=== PATIENT | male | born 1985 | race Caucasian/White ===

== ENCOUNTER 2017-09-14 05:16 | Inpatient (IN) | payer OTHER ==
[2017-09-14] MEDS ORDERED: ACETAMINOPHEN 325 MG TAB PO (06:00)
[2017-09-14] MEDS ORDERED: NACL 0.9% 3 ML SYG IV (06:00)
[2017-09-14] MEDS: PIPER-TAZO 3.375 GM IV (PMX) 100 ML IVPB ×3 (07:44→17:45)
[2017-09-14] MEDS: SOD CHLORIDE 0.9% 1,000 ML IV ×2 (07:44→16:37)
[2017-09-14] MEDS: morphine 2 MG INJ IV ×4 (07:45→20:46)
[2017-09-14] MEDS: ONDANSETRON 4 MG INJ IV ×2 (07:58→18:38)
[2017-09-14] MEDS: DOCUSATE SODIUM 250 MG CAP PO (11:11)
[2017-09-14 12:13] LABS: ADD MAN DIFF? NO
[2017-09-14 12:21] LABS: BASOPHILS % 0.5 % (0.0-2.0); EOSINOPHILS # 0.1 10^3/ul (0.0-0.5); EOSINOPHILS % 2.7 % (0.0-7.0); HEMOGLOBIN 13.7 g/dl (14.0-18.0); LYMPHOCYTES % 25.7 % (15.0-51.0); MEAN CORPUSCULAR HEMOGLOBIN 27.3 pg (29.0-33.0); MEAN CORPUSCULAR HGB CONC 33.4 g/dl (32.0-37.0); MEAN CORPUSCULAR VOLUME 81.8 fl (82.0-101.0); MEAN PLATELET VOLUME 9.6 fl (7.4-10.4); MONOCYTE # 0.3 10^3/ul (0.3-0.9); MONOCYTES % 7.9 % (0.0-11.0); NEUTROPHIL # 2.3 10^3/ul (1.6-7.5); NEUTROPHILS % 62.9 % (39.0-77.0); PLATELET COUNT 209 10^3/UL (140-415); RED BLOOD COUNT 5.01 10^6/ul (4.70-6.10); RED CELL DISTRIBUTION WIDTH 15.3 % (11.5-14.5)
[2017-09-14 12:21] LABS: WHITE BLOOD COUNT 3.7 10^3/ul (4.8-10.8)
[2017-09-14 12:40] LABS: ALANINE AMINOTRANSFERASE 312 IU/L (13-69); ALBUMIN 4.1 g/dl (3.3-4.9); ALBUMIN/GLOBULIN RATIO 1.57; ALKALINE PHOSPHATASE 80 IU/L (42-121); ANION GAP 13 (8-16); ASPARTATE AMINO TRANSFERASE 184 IU/L (15-46); BILIRUBIN,INDIRECT 0.7 mg/dl (0-1.1); BILIRUBIN,TOTAL 0.7 mg/dl (0.2-1.3); BLOOD UREA NITROGEN 12 mg/dl (7-20); CARBON DIOXIDE 28 mmol/L (21-31); CHLORIDE 103 mmol/L (97-110); CHOL/HDL RATIO 2.6 RATIO; CHOLESTEROL 110 mg/dl (100-200); CREATININE 0.82 mg/dl (0.61-1.24); GLUCOSE 83 mg/dl (70-220); HDL CHOLESTEROL 42 mg/dl (28-63); LDL CHOLESTEROL,CALCULATED 56 mg/dl; MAGNESIUM 1.8 mg/dl (1.7-2.5); POTASSIUM 4.3 mmol/L (3.5-5.1); SODIUM 140 mmol/L (135-144); TOTAL PROTEIN 6.7 g/dl (6.1-8.1); TRIGLYCERIDES 59 mg/dl (0-149)
[2017-09-14 12:57] LABS: HEMOGLOBIN A1C 5.9 % (0-5.9)
[2017-09-15] MEDS: PIPER-TAZO 3.375 GM IV (PMX) 100 ML IVPB ×3 (00:17→11:06)
[2017-09-15] MEDS: SOD CHLORIDE 0.9% 1,000 ML IV ×2 (03:51→11:06)
[2017-09-15 04:46] LABS: ADD MAN DIFF? NO
[2017-09-15 04:52] LABS: WHITE BLOOD COUNT 2.5 10^3/ul (4.8-10.8)
[2017-09-15 04:52] LABS: BASOPHILS % 0.8 % (0.0-2.0); EOSINOPHILS # 0.1 10^3/ul (0.0-0.5); EOSINOPHILS % 4.8 % (0.0-7.0); HEMATOCRIT 38.8 % (42.0-52.0); HEMOGLOBIN 13.4 g/dl (14.0-18.0); LYMPHOCYTES # 1.1 10^3/ul (0.8-2.9); LYMPHOCYTES % 42.6 % (15.0-51.0); MEAN CORPUSCULAR HEMOGLOBIN 28.2 pg (29.0-33.0); MEAN CORPUSCULAR HGB CONC 34.5 g/dl (32.0-37.0); MEAN CORPUSCULAR VOLUME 81.7 fl (82.0-101.0); MEAN PLATELET VOLUME 9.6 fl (7.4-10.4); MONOCYTE # 0.3 10^3/ul (0.3-0.9); MONOCYTES % 11.2 % (0.0-11.0); NEUTROPHILS % 40.6 % (39.0-77.0); PLATELET COUNT 198 10^3/UL (140-415); RED BLOOD COUNT 4.75 10^6/ul (4.70-6.10); RED CELL DISTRIBUTION WIDTH 15.1 % (11.5-14.5)
[2017-09-15 05:23] LABS: ALANINE AMINOTRANSFERASE 221 IU/L (13-69); ALBUMIN 3.5 g/dl (3.3-4.9); ALKALINE PHOSPHATASE 67 IU/L (42-121); ANION GAP 15 (8-16); ASPARTATE AMINO TRANSFERASE 88 IU/L (15-46); BILIRUBIN,INDIRECT 0.3 mg/dl (0-1.1); BILIRUBIN,TOTAL 0.3 mg/dl (0.2-1.3); BLOOD UREA NITROGEN 8 mg/dl (7-20); CALCIUM 8.3 mg/dl (8.4-10.2); CARBON DIOXIDE 26 mmol/L (21-31); CHLORIDE 105 mmol/L (97-110); CREATININE 0.86 mg/dl (0.61-1.24); GLUCOSE 105 mg/dl (70-220); POTASSIUM 4.5 mmol/L (3.5-5.1); SODIUM 141 mmol/L (135-144); TOTAL PROTEIN 6.4 g/dl (6.1-8.1)
[2017-09-15] MEDS: morphine 2 MG INJ IV (06:05)
[2017-09-15] MEDS: DOCUSATE SODIUM 250 MG CAP PO (08:55)
[2017-09-15 16:35] LABS: HEPATITIS B SURFACE ANTIGEN NEGATIVE (NEGATIVE)
[2017-09-15 16:53] LABS: HEPATITIS B CORE ANTIBODY NEGATIVE (NEGATIVE)
[2017-09-15 17:32] LABS: HEPATITIS B SURFACE ANTIBODY POSITIVE (NEGATIVE)
[2017-09-15 17:36] LABS: HEPATITIS C VIRAL ANTIBODY NEGATIVE (NEGATIVE)
== END 2017-09-15 16:35 | disposition home or self-care (01) | DRG 395 ==
LOC: MS1 05:16
DX: K37 Unspecified appendicitis (principal); E66.01 Morbid (severe) obesity due to excess calories; Z68.38 Body mass index [BMI] 38.0-38.9, adult; Z87.891 Personal history of nicotine dependence; D50.9 Iron deficiency anemia, unspecified; R74.0 Nonspecific elevation of levels of transaminase and lactic acid dehydrogenase [LDH]; K76.0 Fatty (change of) liver, not elsewhere classified
CPT/HCPCS: 80053; 80061; 83036; 83735; 84443; 85025; 86704; 86706; 86803; 87340

== ENCOUNTER 2017-09-16 13:32 | Inpatient (IN) | payer OTHER ==
[2017-09-16] MEDS ORDERED: ACETAMINOPHEN 325 MG TAB PO (15:30)
[2017-09-16] MEDS ORDERED: ZOLPIDEM 5 MG TAB PO (15:30)
[2017-09-16] MEDS: PIPER-TAZO 3.375 GM IV (PMX) 100 ML IVPB ×2 (16:57→21:58)
[2017-09-16] MEDS: FAMOTIDINE 20 MG TAB PO ×2 (16:57→21:59)
[2017-09-16] MEDS: DOCUSATE SODIUM 250 MG CAP PO ×2 (16:57→21:58)
[2017-09-16] MEDS: DEXTROSE 5%-0.45% NACL 1,000 ML IV (16:58)
[2017-09-16] MEDS: morphine 2 MG INJ IV ×2 (18:07→21:59)
[2017-09-16] MEDS: ONDANSETRON 4 MG INJ IV (22:01)
[2017-09-17] MEDS: DEXTROSE 5%-0.45% NACL 1,000 ML IV ×3 (00:28→11:36)
[2017-09-17] MEDS: morphine 2 MG INJ IV ×3 (02:06→10:02)
[2017-09-17] MEDS: PIPER-TAZO 3.375 GM IV (PMX) 100 ML IVPB (05:22)
[2017-09-17] MEDS: ONDANSETRON 4 MG INJ IV (05:22)
[2017-09-17 07:42] LABS: ADD MAN DIFF? NO
[2017-09-17 07:53] LABS: BASOPHILS % 0.7 % (0.0-2.0); EOSINOPHILS # 0.1 10^3/ul (0.0-0.5); HEMATOCRIT 41.4 % (42.0-52.0); HEMOGLOBIN 13.7 g/dl (14.0-18.0); LYMPHOCYTES # 1.5 10^3/ul (0.8-2.9); MEAN CORPUSCULAR HEMOGLOBIN 27.2 pg (29.0-33.0); MEAN CORPUSCULAR HGB CONC 33.1 g/dl (32.0-37.0); MEAN CORPUSCULAR VOLUME 82.3 fl (82.0-101.0); MEAN PLATELET VOLUME 9.7 fl (7.4-10.4); MONOCYTE # 0.3 10^3/ul (0.3-0.9); MONOCYTES % 7.7 % (0.0-11.0); NEUTROPHILS % 50.4 % (39.0-77.0); PLATELET COUNT 223 10^3/UL (140-415); RED BLOOD COUNT 5.03 10^6/ul (4.70-6.10); RED CELL DISTRIBUTION WIDTH 14.7 % (11.5-14.5)
[2017-09-17 08:09] LABS: ANION GAP 15 (8-16); BLOOD UREA NITROGEN 11 mg/dl (7-20); CALCIUM 8.4 mg/dl (8.4-10.2); CARBON DIOXIDE 29 mmol/L (21-31); CHLORIDE 101 mmol/L (97-110); CREATININE 0.83 mg/dl (0.61-1.24); GLUCOSE 74 mg/dl (70-220); MAGNESIUM 1.9 mg/dl (1.7-2.5); PHOSPHORUS 3.5 mg/dl (2.5-4.9); POTASSIUM 3.8 mmol/L (3.5-5.1); SODIUM 141 mmol/L (135-144)
[2017-09-17] MEDS: FAMOTIDINE 20 MG TAB PO (10:01)
[2017-09-17] MEDS: DOCUSATE SODIUM 250 MG CAP PO (10:03)
== END 2017-09-17 13:55 | disposition left against medical advice (07) | DRG 395 ==
LOC: MS2 13:32
DX: K35.80 Unspecified acute appendicitis (principal); E66.01 Morbid (severe) obesity due to excess calories; Z68.39 Body mass index [BMI] 39.0-39.9, adult; F17.210 Nicotine dependence, cigarettes, uncomplicated; R11.2 Nausea with vomiting, unspecified; D50.9 Iron deficiency anemia, unspecified
CPT/HCPCS: 80048; 83735; 84100; 85025; 87081